=== PATIENT | female | born 1965 | race Caucasian/White ===

== ENCOUNTER → 2017-04-13 | Outpatient (CLI) | payer BC | END | disposition home or self-care (01) | LOC: LAB.O 12:17 | PROVIDERS: ATTEND Psychiatry & Neurology Neurology | DX: Z79.891 Long term (current) use of opiate analgesic (principal) ==

== ENCOUNTER → 2017-10-17 | Outpatient (CLI) | payer BC, OTHER ==
--- NOTE | 2017-10-17 13:37 | US ---
EXAM DESCRIPTION: Renal: Ultrasound. CLINICAL HISTORY: HYDRONEPHROSIS. "Surgery on the right kidney in the past." COMPARISON: None. TECHNIQUE: Transcutaneous scanning: Two-dimensional and Doppler modes. Technically difficult study due to patient body habitus. FINDINGS: Right kidney measures 12.7 x 6.0 x 6.0 cm; mid-renal cortical thickness normal . Echogenicity minimally increased in the cortex. No hydronephrosis No calcifications. Smooth contour of the kidney with no perinephric fluid. Normal vascularity. Proximal ureter not visualized. Left kidney measures 12.1 x 6.8 x 6.6 cm; mid-renal cortical thickness normal echogenicity minimally decreased in the cortex. No hydronephrosis. No calcifications. Smooth contour of the kidney with no perinephric fluid. Normal vascularity.. Proximal ureter not visualized. Urinary bladder not visualized. Abdominal aorta not visualized. IMPRESSION: 1. Bilateral kidneys with increased cortical echogenicity but no cortical thinning. No hydronephrosis or perinephric fluid. No ascites. Urinary bladder and abdominal aorta not visualized. Electronically signed by: Anthony Skinner MD 10/17/2017 1:36 PM [facility]
== END | disposition home or self-care (01) ==
LOC: US 07:55
PROVIDERS: ATTEND Urology
DX: N13.30 Unspecified hydronephrosis (principal)